=== PATIENT | male | born 2000 | race Caucasian/White ===

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

== ENCOUNTER 2022-08-22 20:02 | Emergency (ER) | payer OTHER ==
[~2022-08-22] VITALS: Ht 177.8 cm; Wt 63.6 kg
[~2022-08-22 20:02] MED LIST: LORA10TA7 PO
[2022-08-22 20:13] VITALS: BP 134/77
== END 2022-08-22 20:39 | disposition left against medical advice (07) ==
LOC: EMS 20:02
DX: Z53.21 Procedure and treatment not carried out due to patient leaving prior to being seen by health care provider (principal)
CPT/HCPCS: 99281; Z7502